=== PATIENT | male | born 1945 | race Caucasian/White ===

== ENCOUNTER 2018-01-23 02:46 | Inpatient (IN) | payer OTHER ==
[~2018-01-23] VITALS: Ht 182.9 cm; Wt 95.6 kg
--- NOTE | ~2018-01-23 | CATHLAB ---
[facility] [place] [address] INVASIVE PROCEDURE REPORT Name: PATTI TA Room #: 213-P [facility]#: [id number] Admission: 01/23/18 Attend Phys: Enio Johnson, Discharge: Date of : 45 Date of Service: 01/23/18 1229 Report #: [id number] THIS REPORT FOR: //name// APPROVED REPORT Study performed: 01/23/2018 10:17:11 Patient Details Patient Status: In-Patient Room #: The patient is a 72 year-old male Event Personnel Shawn Stinson Rod Bending Machine Operator, Rox Sol RN RN, Jacinto Medrano Monitor, [place] Monitor Procedures Performed Left Heart Cath w/or w/o Coronaries [id number] [facility] Indication Non-STEMI (>6 hrs to = 12 hrs), Arrhythmia, Chest pain Procedure Narrative The Right Groin^ was infiltrated with 1% Lidocaine subcutaneous anesthesia. A PINNACLE 6FR Sheath #[id number] sheath was inserted into the RFA^. Coronary angiography was performed using coronary diagnostic catheters. The right coronary system was accessed and visualized with a JR4 catheter. The left coronary system was accessed and visualized with a JL4 catheter. The left ventricle was accessed and visualized with a PIGTAIL catheter. Left ventricular/Aortic Valve gradient assessed via catheter pullback. Left ventriculogram was performed in 30 degree projection. Closure device was deployed with a 6 Fr MYNXGRIP 6/7F #[id number]. The patient tolerated the procedure well and there were no complications associated with the procedure. A hematoma occurred. Intraoperative Conscious Sedation Sedation start time: 10.42 Case end Time: 10.58 Fentanyl 100 mcg Versed 1 mg Fluoro Time: 1.59 minutes Dose: DAP 4597 cGycm2 436 mGy Contrast Type and Amount: Visipaque 125 ml Coronary Angiography [facility] [place] [address] INVASIVE PROCEDURE REPORT Name: PATTI TA Room #: 213-P [facility]#: [id number] Admission: 01/23/18 Attend Phys: Enio Johnson, Discharge: Date of : 45 Date of Service: 01/23/18 1229 Report #: [id number] The patient's coronary anatomy is right dominant. Diagnostic Cath Left Main Normal LAD Normal LAD Diagonal 1 Large bifurcating diagonal branch, angiographically normal Circumflex Large but nondominant and comprised of 2 marginal branches OM1 Moderate in size and angiographically normal OM2 Distally arising, bifurcating, angiographically normal Right Coronary The right coronary is quite large, dominant, and angiographically normal R PDA Normal posterior descending artery RPLV Large, bifurcating postero-lateral branch, angiographically normal Left Ventriculography The left ventricle is normal in size with normal contractility. The left ventricular ejection fraction is estimated to be 60-65%. Left ventricular wall motion abnormalities are not present. There is no mitral insufficiency. Hemodynamics The aortic pressure is 125/72 mmHg with a mean of 88 mmHg. The left ventricular pressure is 121/16 mmHg with a mean of mmHg. The left ventricular end diastolic pressure is 20 mmHg. Conclusion 1. Normal global and regional left ventricular systolic function. Ejection fraction 65% 2. Normal left main 3. Normal coronary arteries. Right coronary dominant circulation Recommendations Smoking Cessation Aggressive Medical Therapy <ELECTRONICALLY SIGNED> By: Shawn Stinson MD, FACC 01/23/18 1229 1229 1229 Shawn Stinson MD, FACC /INF
--- NOTE | ~2018-01-23 | 2DMMODE ---
[facility] [address] [place] [address] 2 D/M-MODE ECHOCARDIOGRAM Name: PATTI TA Room #: 213-P [facility] ..#: [id number] Admission: 01/23/18 Attend Phys: Enio Johnson, Discharge: Date of : 45 Date of Service: 01/23/18 1341 Report #: [id number] THIS REPORT FOR: //name// APPROVED REPORT Study performed: 01/23/2018 11:36:57 EXAM: Comprehensive 2D, Doppler, and color-flow Echocardiogram Patient Location: Bedside Room #: 213 Status: routine BSA: 2.18 HR: 67 bpm BP: 122/72 mmHg Rhythm: Atrial Fibrillation Other Information Study Quality: Adequate Technically limited study due to pt. unable to turn on left side. Risk Factors: Cardiac Risk Factors: HTN, Hyperlipidemia, Smoking, ETOH Indications Atrial Fibrillation Dyspnea Chest Pain 2D Dimensions LVEF(%): 63.87 (>50%) IVSd: 11.21 (7-11mm) LVOT Diam: 21.00 (18-24mm) LVDd: 51.75 mm PWd: 11.78 (7-11mm) Ascending Ao: 30.04 (22-36mm) LVDs: 33.66 (25-40mm) Aortic Root: 34.18 mm LV Single Plane 4CH: 60.00 % LV Single Plane 2CH: 61.15 % Little's LVEF: 60.58 % Biplane EF: 59.3 % Volumes Left Atrial Volume (Systole) Single Plane 4CH: 54.78 mL Single Plane 2CH: 62.00 mL LA ESV Index: 29.00 mL/m2 [facility] [address] [place] [address] 2 D/M-MODE ECHOCARDIOGRAM Name: KEYONPATTI Sydni Room #: 213-P [facility]#: [id number] Admission: 01/23/18 Attend Phys: Enio Johnson, Discharge: Date of : 45 Date of Service: 01/23/18 1341 Report #: [id number] Aortic Valve AoV Peak Naeem.: 1.10 m/s AO Peak Gr.: 4.84 mmHg Pulmonary Valve PV Peak Naeem.: 0.83 m/s PV Peak Gr.: 2.73 mmHg Tricuspid Valve TR Peak Naeem.: 2.53 m/s RAP Estimate: 7.00 mmHg TR Peak Gr.: 25.65 mmHg PA Pressure: 33.00 mmHg Left Ventricle The left ventricle is normal size. There is normal LV segmental wall motion. Mild concentric left ventricular hypertrophy. Left ventricular systolic function is normal. The left ventricular ejection fraction is within the normal range. LVEF is 60-65%. This study is not technically sufficient to allow evaluation of the LV diastolic function due to atrial fibrillation. Right Ventricle Right ventricle is dilated. The right ventricular systolic function is normal. Atria The left atrium size is normal. Right atrium is dilated. Aortic Valve The aortic valve is normal in structure. No aortic regurgitation is present. There is no aortic valvular stenosis. Mitral Valve The mitral valve is normal in structure. Trace to mild mitral regurgitation. No evidence of mitral valve stenosis. Tricuspid Valve The tricuspid valve is normal in structure. Mild tricuspid regurgitation. Pulmonary artery pressure is 33 mmHg. Pulmonic Valve The pulmonary valve is normal in structure. There is no pulmonic valvular regurgitation. Great Vessels The aortic root is normal in size. IVC is normal in size and [facility] [address] [place] [address] 2 D/M-MODE ECHOCARDIOGRAM Name: KEYONPATTI Sydni Room #: 213-P [facility] ..#: [id number] Admission: 01/23/18 Attend Phys: Enio Johnson, Discharge: Date of : 45 Date of Service: 01/23/18 1341 Report #: [id number] collapses with >50% inspiration Pericardium There is no pericardial effusion. <Conclusion> Left ventricular systolic function is normal. There is normal LV segmental wall motion. Right ventricle and atrium are dilated. The aortic valve is normal in structure. No aortic regurgitation or stenosis The mitral valve is normal in structure. Trace to mild mitral regurgitation. Mild tricuspid regurgitation. Pulmonary artery pressure is 33 mmHg. There is no pericardial effusion. <ELECTRONICALLY SIGNED> By: Shawn Stinson MD, [facility] 01/23/181340 40 40 Shawn Stinson MD, [facility] /INF
--- NOTE | ~2018-01-23 | HC ---
[facility] [place] [place] [address] CONSULTATION Name: ANDRAWILMERPATTI Sydni Room #: 213-P [facility] ..#: [id number] Admission: 01/23/18 Attend Phys: Enio Johnson MD Discharge: 01/24/18 Date of : 45 Report #: [id number] THIS REPORT FOR: //name// CC: Enio Lew REASON FOR CONSULTATION: Chest pain. HISTORY OF PRESENT ILLNESS: The patient is a 72-year-old gentleman with a history of tobacco dependency, hypertension, dyslipidemia, who presents with midsternal chest heaviness. He reports drinking a fair amount last night. He took two 100 mg Viagra tablets and shortly thereafter developed midsternal chest tightness. He was seen at [facility] where he was in atrial fibrillation with a rapid ventricular response. There was an underlying right bundle branch block with diffuse ST and T-wave changes. He has been placed on Cardizem and amiodarone and converted to sinus rhythm. He denies chest pain this morning. Troponin was elevated at 0.76. Does report a history of exertional shortness of breath and chest pain. This has been a longstanding occurrence, typically when he exerts himself. No heart failure symptoms including orthopnea, paroxysmal nocturnal dyspnea or lower extremity edema. No history of near syncope or syncope. MEDICATIONS: Include amlodipine 5 mg daily, aspirin, fluoxetine 40 mg daily, hydrochlorothiazide 25 mg daily, Zestril 20 mg daily, Meloxicam, Lopid, Seroquel 200 mg daily, simvastatin 80 mg daily. ALLERGIES: HE IS ALLERGIC TO OXYCODONE. PAST MEDICAL HISTORY: Medical records have been reviewed and include a history of knee surgery, shoulder surgery, fall with sternal fracture. SOCIAL HISTORY: He is an ongoing smoker, heavy drinker. FAMILY HISTORY: Notable for father and brother with coronary artery disease at an early age. REVIEW OF SYSTEMS: All systems negative except as that noted above. PHYSICAL EXAMINATION: GENERAL: Reveals a pleasant gentleman in no distress. VITAL SIGNS: Blood pressure is 116/78, heart rate of 90 and regular. He is afebrile, 6 feet tall, 210 pounds. HEENT: There are neither xanthelasma, subcutaneous xanthomata, oral mucosal or digital cyanosis or kyphoscoliosis present. CHEST: Clear to auscultation and percussion. CARDIAC: Regular rate and rhythm with normal S1, S2. ABDOMEN: Soft and nontender. [address] [address] CONSULTATION Name: PATTI TA Sydni Room #: [address] [place] [address] [place] [facility].#: [id number] Admission: 01/23/18 Attend Phys: Enio Johnson MD Discharge: 01/24/18 Date of : 45 Report #: [id number] EXTREMITIES: Without cyanosis, clubbing or edema. Radial pulses are 2+. NEUROLOGIC: He is alert with a nonfocal exam. LABORATORY DATA: Sodium 142, potassium 3.7, creatinine 1.1. Troponin 0.75. White count 12.9, hemoglobin 13, hematocrit 39 and platelet count 274. ProBNP of 253. IMPRESSION: 1. Atrial fibrillation with a rapid ventricular response, now sinus rhythm. 2. Non-Q-wave myocardial infarction. 3. Hypertension. 4. Dyslipidemia. 5. History of depression. 6. Tobacco dependency. 7. Significant alcohol use history. RECOMMENDATIONS: 1. Change from intravenous to oral Cardizem. 2. Coronary angiography. 3. Moderation in alcohol intake, this atrial fibrillation may be related to binge drinking. 4. Smoking cessation discussed. Further thoughts will be forthcoming based on this evaluation. Thank you for asking me to participate in his care. <ELECTRONICALLY SIGNED> By: Shawn Stinson MD, [facility] 01/24/18 1644 0723 0942 Shawn Stinson MD, FACC /nt
--- NOTE | ~2018-01-23 | EKG ---
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
[2018-01-23 04:25] VITALS: BP 116/78
[2018-01-23] MEDS ORDERED: ASPIRIN325 PO (04:32)
[2018-01-23] MEDS ORDERED: NORVASC5 MG PO (04:32)
[2018-01-23] MEDS ORDERED: PROZAC20 MG PO (04:33)
[2018-01-23] MEDS ORDERED: MOBIC15 MG PO (04:34)
[2018-01-23] MEDS ORDERED: HYDROCHLOROTHIA25 M1 PO (04:34)
[2018-01-23] MEDS ORDERED: LISINOPRIL20 MG PO (04:34)
[2018-01-23] MEDS ORDERED: QUETIAPINE FUM100 MG PO (04:35)
[2018-01-23] MEDS ORDERED: GEMFIBROZIL 60600 MG PO (04:35)
[2018-01-23] MEDS ORDERED: VIAGRA100 MG PO (04:36)
[2018-01-23] MEDS ORDERED: ZOCOR40 MG PO (04:37)
[2018-01-23 05:16] LABS: HEMATOCRIT 39.5 % (42.0-52.0); HEMOGLOBIN 13.4 gm/dL (14.0-18.0); MCH 32.8 pg (26.0-34.0); MCHC 33.9 g/dL (28.0-37.0); MCV 96.6 fL (80.0-100.0); RBC 4.09 mil/uL (4.50-6.00); RDW 14.4 % (10.5-14.5); WBC 12.9 thou/uL (4.0-11.0)
[2018-01-23 05:30] LABS: CALCIUM 8.5 mg/dL (8.5-10.1); CREATININE 1.1 mg/dL (0.7-1.3); POTASSIUM 3.7 mmol/L (3.5-5.1)
[2018-01-23 05:38] LABS: ALBUMIN 3.1 g/dL (3.4-5.0); TOTAL BILIRUBIN 0.2 mg/dL (<0.1-1.0); TOTAL PROTEIN 6.1 g/dL (6.4-8.2)
[2018-01-23 05:40] LABS: TROPONIN-I 0.75 ng/mL (<0.06)
[2018-01-23 07:30] VITALS: BP 122/72
[2018-01-23 07:31] LABS: CHOLESTEROL 128 mg/dL (<200); HDL CHOLESTEROL 31 mg/dL (>40); LDL CHOLESTEROL 58 mg/dL (<100); TC:HDL 4.1 Ratio (Not establshd); TRIGLYCERIDE 197 mg/dL (<150); VLDL 39 mg/dL (<40)
[2018-01-23 11:30] VITALS: BP 117/65
[2018-01-23 15:15] VITALS: BP 105/58; BP 105/68
[2018-01-23 20:15] VITALS: BP 119/71
[2018-01-24 03:35] LABS: HEMATOCRIT 40.2 % (42.0-52.0); HEMOGLOBIN 13.7 gm/dL (14.0-18.0); MCH 32.8 pg (26.0-34.0); MCV 96.4 fL (80.0-100.0); RBC 4.17 mil/uL (4.50-6.00); RDW 13.9 % (10.5-14.5); WBC 11.2 thou/uL (4.0-11.0)
[2018-01-24 03:52] LABS: CALCIUM 8.4 mg/dL (8.5-10.1); CREATININE 1.1 mg/dL (0.7-1.3); MAGNESIUM 1.7 mg/dL (1.8-2.4); POTASSIUM 4.3 mmol/L (3.5-5.1); TROPONIN-I 0.12 ng/mL (<0.06)
[2018-01-24 04:30] VITALS: BP 109/70
[2018-01-24 11:24] VITALS: BP 132/79
[2018-01-24] MEDS ORDERED: METOPROLOL SUCC25 M1 PO (11:44)
[2018-01-24] MEDS ORDERED: PREDNISONE 10 M10 MG PO (11:45)
[2018-01-24] MEDS ORDERED: CIPRO500 M1 PO (11:46)
[2018-01-24] MEDS ORDERED: VENTOLIN HFA 1818 GM INH (11:47)
[2018-01-24 11:54] VITALS: BP 132/79
== END 2018-01-24 12:32 | disposition home or self-care (01) | DRG 280 ==
LOC: 2N 02:46 → ENTRNSPT 01-24 12:32
PROVIDERS: Internal Medicine; Nurse Practitioner Family
PROC: B2151ZZ Fluoroscopy of Left Heart using Low Osmolar Contrast (ICD-10-PCS; principal; 2018-01-23)
PROC: 4A023N7 Measurement of Cardiac Sampling and Pressure, Left Heart, Percutaneous Approach (ICD-10-PCS; principal; 2018-01-23)
PROC: B2111ZZ Fluoroscopy of Multiple Coronary Arteries using Low Osmolar Contrast (ICD-10-PCS; principal; 2018-01-23)
DX: I21.A1 Myocardial infarction type 2 (principal); J96.01 Acute respiratory failure with hypoxia; D83.9 Common variable immunodeficiency, unspecified; J44.1 Chronic obstructive pulmonary disease with (acute) exacerbation; I48.91 Unspecified atrial fibrillation; I10 Essential (primary) hypertension; F32.9 Major depressive disorder, single episode, unspecified; E78.5 Hyperlipidemia, unspecified; F17.210 Nicotine dependence, cigarettes, uncomplicated; Z71.6 Tobacco abuse counseling; Z79.82 Long term (current) use of aspirin; Z79.899 Other long term (current) drug therapy; Z88.8 Allergy status to other drugs, medicaments and biological substances; Z82.49 Family history of ischemic heart disease and other diseases of the circulatory system
CPT/HCPCS: 10081